=== PATIENT | female | born 1940 | race Caucasian/White ===

== ENCOUNTER 2019-10-29 07:16 | Day surgery (SDC) | payer MEDICARE, OTHER ==
[2019-10-29] MEDS ORDERED: Lidocaine 2% 5 ML SDV INJECT ONE (07:17)
[2019-10-29] MEDS ORDERED: Propofol 200 MG/20 ML SDV IV ONE (07:17)
[2019-10-29] MEDS ORDERED: Lactated Ringers 1,000 ML IV SCH (07:45)
[2019-10-29] MEDS ORDERED: Sodium Chloride 0.9% 10 ML Syringe FLUSH PRN (07:45)
--- NOTE | 2019-10-29 09:24 | PCM.OPNOTE ---
- General Post-Op/Procedure Note Date of Surgery/Procedure: 10/29/19 Operative Procedure(s): egd with biopsy Findings: gastritis Pre Op Diagnosis: hx of epigastric pain Post-Op Diagnosis: gastritis Anesthesia Technique: MAC Primary Surgeon: Micah Hicks Anesthesia Provider: Nichol Ly Pathology: stomach biopsies Complications: None Condition: Good Free Text/Narrative:: see dictation
[2019-10-29 11:52] VITALS: BP 134/68; PULSE 66
--- NOTE | 2019-10-29 15:09 | OR ---
DATE OF OPERATION: 10/29/2019 SURGEON: Micah Hicks MD PROCEDURE PERFORMED: Esophagogastroduodenoscopy with cold forceps biopsy. PREOPERATIVE DIAGNOSIS: Epigastric abdominal pain. POSTOPERATIVE DIAGNOSIS: Gastritis. INDICATIONS FOR PROCEDURE: This is a 79-year-old white female referred with the above-mentioned complaints of some epigastric abdominal discomfort. She is on a proton pump inhibitor. She was offered and accepted an EGD as part of workup. DESCRIPTION OF OPERATION: After an excellent IV sedation was administered, the bite block was inserted. The flexible endoscope was passed without difficulty down the patient's esophagus into the stomach. The stomach was insufflated. Scope passed through the pylorus to the second portion of duodenum and slowly withdrawn. The following findings were noted: Duodenum was unremarkable. Stomach demonstrated diffuse gastritis. Random biopsies and photos were taken. GE junction measured at approximately 40 cm. The Z-line was noted to be unremarkable. The esophagus itself was unremarkable. The stomach was deflated. Scope was removed. The patient tolerated the procedure well, was taken to Recovery in good condition. Results will be sent to the patient via letter. /[id number] /MODL
== END 2019-10-29 10:05 | disposition home or self-care (01) ==
LOC: FB.SDS 07:16
PROVIDERS: ATTEND Surgery
DX: K29.30 Chronic superficial gastritis without bleeding (principal); B96.81 Helicobacter pylori [H. pylori] as the cause of diseases classified elsewhere; E11.9 Type 2 diabetes mellitus without complications; I10 Essential (primary) hypertension; Z79.899 Other long term (current) drug therapy; Z79.84 Long term (current) use of oral hypoglycemic drugs; Z88.0 Allergy status to penicillin; Z88.8 Allergy status to other drugs, medicaments and biological substances; Z90.49 Acquired absence of other specified parts of digestive tract
CPT/HCPCS: 00731; 43239; 82962; J2001; J2704; J7120; 88305; 88342

== ENCOUNTER 2020-12-08 16:45 | Observation (INO) | payer MEDICARE, OTHER ==
[2020-12-08] MEDS ORDERED: Sodium Chloride 0.9% 10 ML Syringe FLUSH PRN (17:40)
[2020-12-08] MEDS ORDERED: Ondansetron 4 MG/2 ML SDV IV PRN (17:40)
--- NOTE | 2020-12-08 17:55 | PCM.HP.2 ---
H&P History of Present Illness - General Date of Service: 12/08/20 Admit Problem/Dx: Admission Diagnosis/Problem Admission Diagnosis/Problem Dehydration Source of Information: Patient, Family History Limitations: Reports: No Limitations - History of Present Illness Initial Comments - Free Text/Narative: This is a 80-year-old female patient that had nausea, vomiting, not eating, abdominal pain ongoing for at least a month. He keeps getting worse. She was seen in the ER and Nirav in the evaluated her. I recently did a CT and they repeated 1 showed a cystic lesion in the pancreas and recommended MRI. She has had a scope within the last year did show gastritis. She is on a proton pump inhibitor and Carafate that has not seemed to help. She's had extensive workup for pancreatitis, liver problems and everything is negative. She also has a long psych history of depression ever since her daughter had mental issues. Her daughter is doing better but she is still have problems. She does see psychiatry and has appointment of the of the month. She denies any heartburn, hematochezia, melena, dysuria, pyuria, hematuria. Abdominal pain is cannot upper abdomen but can be diffuse at times. Her gallbladder has been surgically removed. - Related Data Allergies/Adverse Reactions: Allergies Allergy/AdvReac Type Severity Reaction Status Date / Time PHILIPPE Inhibitors Allergy Cough Verified 12/08/20 17:29 levofloxacin [From Levaquin] Allergy Edema Verified 12/08/20 17:29 meperidine HCl [From Demerol] Allergy Vomiting Verified 12/08/20 17:29 Penicillins Allergy Edema Verified 12/08/20 17:29 Home Medications: Home Meds Ascorbate Calcium [Vitamin C] 1,000 mg PO DAILY 12/09/13 [History] Aspirin [[place] Aspirin EC] 81 mg PO DAILY 12/09/13 [History] Fluticasone Propionate [Flonase] 2 spray KATHLEEN DAILY PRN 12/09/13 [History] Simvastatin [Zocor] 40 mg PO DAILY 12/09/13 [History] Sodium Chloride [Saline Nasal [place]] 1 sprays KATHLEEN QID PRN 12/09/13 [History] metFORMIN [Glucophage] 1,000 mg PO BIDM 12/09/13 [History] Calcium Carbonate/Vitamin D3 [Calcium 500 + Vit D 400] 1 each PO DAILY 06/30/20 [History] Cetirizine [ZyrTEC] 10 mg PO DAILY PRN 10/27/19 [History] Codeine/guaiFENesin [Robitussin AC] 5 ml PO Q4H PRN 10/27/19 [History] Cyanocobalamin (Vitamin B-12) [B-12] 1,000 mcg PO DAILY 10/27/19 [History] Hydrochlorothiazide/Losartan [Hyzaar 100-12.5 MG] 0.5 tab PO DAILY 10/27/19 [History] Omeprazole 20 mg PO DAILY 10/27/19 [History] Sertraline [Zoloft] 100 mg PO DAILY 10/27/19 [History] Venlafaxine [Effexor XR 24 Hr] 37.5 mg PO DAILY 12/08/20 [History] Past Medical History HEENT History: Reports: Allergic Rhinitis, Cataract Other HEENT History: ASTIGMATISM, HYPEROPIA, MUCOUS CYST OF MOUTH, PRESBYOPIA, PSEUDOPHAKIA Cardiovascular History: Reports: High Cholesterol, Hypertension Other Respiratory History: 5 YEARS AGO. HAS PROBLEM WITH SLEEP APNEA, BUT USES ONLY PILLOW FOR ELEVATION, NOT MACHINE. OCCASIONAL ALLERGIC RHINITIS Other Musculoskeletal History: ARTHROPATHY OF HAND, OSTEOPENIA OF SPINE, MEDIAL MENISCUS TEAR Psychiatric History: Reports: Anxiety, Depression Endocrine/Metabolic History: Reports: Diabetes, Type II Other Dermatologic History: EPIDERMAL CYST, SPIDER VARICOSE VEINS - Past Surgical History HEENT Surgical History: Reports: Cataract Surgery GI Surgical History: Reports: Cholecystectomy, Colonoscopy Female Surgical History: Reports: Section, Hysterectomy Other Female Surgeries/Procedures: JEFRY, RSO, D&C'S Musculoskeletal Surgical History: Reports: Arthroscopic Procedure Social & Family History - Caffeine Use Caffeine Use: Reports: Coffee H&P Review of Systems - Review of Systems: Review Of Systems: See Below General: Reports: Weakness, Decreased Appetite, Weight Loss HEENT: Reports: No Symptoms Pulmonary: Reports: No Symptoms Cardiovascular: Reports: No Symptoms Gastrointestinal: Reports: Abdominal Pain, Anorexia, Decreased Appetite, Nausea, Vomiting Genitourinary: Reports: No Symptoms Musculoskeletal: Reports: No Symptoms Skin: Reports: No Symptoms Psychiatric: Reports: Depression Neurological: Reports: No Symptoms Hematologic/Lymphatic: Reports: No Symptoms Immunologic: Reports: No Symptoms Exam - Exam Exam: See Below - Exam General: Alert, Oriented, Cooperative HEENT: PERRLA, Hearing Intact, Posterior Pharynx Clear, TMs Clear Neck: Supple, Trachea Midline Lungs: Clear to Auscultation, Normal Respiratory Effort Cardiovascular: Regular Rate, Regular Rhythm. No: Systolic Murmur GI/Abdominal Exam: Normal Bowel Sounds, Soft, No Distention, Tender (Epigastrium and right upper quadrant) Extremities: Normal Inspection, Normal Range of Motion, Non-Tender, No Pedal Edema Skin: Warm, Dry, Intact Neurological: Normal Speech, Normal Tone Neuro Extensive - Mental Status: Alert, Oriented x3, Other (Blunted mood and slow cognition) Psychiatric: Alert, Normal Affect, Normal Mood - Problem List (1) Dehydration SNOMED Code(s): 76793296 ICD Code: E86.0 - DEHYDRATION Status: Acute Current Visit: Yes (2) Abdominal pain SNOMED Code(s): 39262103 ICD Code: R10.9 - UNSPECIFIED ABDOMINAL PAIN Status: Acute Current Visit: Yes (3) Nausea & vomiting SNOMED Code(s): 01305323 ICD Code: R11.2 - NAUSEA WITH VOMITING, UNSPECIFIED Status: Acute Current Visit: Yes (4) Weight loss SNOMED Code(s): 99086991, 015692337 ICD Code: R63.4 - ABNORMAL WEIGHT LOSS Status: Acute Current Visit: Yes (5) Depression SNOMED Code(s): 75317501 ICD Code: F32.9 - MAJOR DEPRESSIVE DISORDER, SINGLE EPISODE, UNSPECIFIED Status: Acute Current Visit: Yes (6) Palliative care status SNOMED Code(s): 131617897 ICD Code: Z51.5 - ENCOUNTER FOR PALLIATIVE CARE Status: Acute Current Visit: Yes Problem List Initiated/Reviewed/Updated: Yes Orders Last 24hrs: Active Orders 24 hr Category Date Time Status Patient Status [ADT] Routine ADT 12/08/20 17:40 Ordered Blood Glucose Check, Bedside [] BIDMEALS Care 12/08/20 17:40 Ordered Height and Weight [] DAILY Care 12/08/20 17:40 Ordered Intake and Output [RC] QSHIFT Care 12/08/20 17:42 Ordered Notify Provider Consults [] ASDIRECTED Care 12/08/20 17:44 Ordered Oxygen Therapy [RC] PRN Care 12/08/20 17:40 Ordered Up With Assistance [] ASDIRECTED Care 12/08/20 17:40 Ordered VTE/DVT Education [RC] Per Unit Routine Care 12/08/20 17:40 Ordered Vital Signs [RC] Q4H Care 12/08/20 17:40 Ordered Consult to Physician [CONS] Routine Cons 12/08/20 17:40 Ordered OT Evaluation and Treatment [CONS] Routine Cons 12/08/20 17:40 Ordered PT Evaluation and Treatment [CONS] Routine Cons 12/08/20 17:40 Ordered Consistent Carbohydrate Diet [DIET] Diet 12/08/20 Dinner Ordered Abdomen w Cont [MR] Routine Exams 12/09/20 06:00 Ordered AMYLASE [CHEM] Routine Lab 12/08/20 17:40 Ordered CBC WITH AUTO DIFF [HEME] Routine Lab 12/08/20 17:40 Ordered COMPREHENSIVE METABOLIC PN,CMP [CHEM] Routine Lab 12/08/20 17:40 Ordered LIPASE [CHEM] Routine Lab 12/08/20 17:40 Ordered UA W/MICROSCOPIC [URIN] Routine Lab 12/08/20 17:40 Ordered Enoxaparin [Lovenox] Med 12/08/20 17:45 Ordered 40 mg SUBCUT Q24H Ondansetron [Zofran] Med 12/08/20 17:40 Ordered 4 mg IV Q4H PRN Sodium Chloride 0.9% @ 125 MLS/HR (1000ml) Med 12/08/20 17:45 Ordered Sodium Chloride 0.9% [Normal Saline] 1,000 ml IV ASDIRECTED Sodium Chloride 0.9% [Saline Flush] Med 12/08/20 17:40 Ordered 10 ml FLUSH ASDIRECTED PRN Peripheral IV Insertion Adult [OM.PC] Routine Oth 12/08/20 17:40 Ordered Resuscitation Status Routine Resus Stat 12/08/20 17:40 Ordered Medication Orders Enoxaparin Sodium (Enoxaparin 40 Mg/0.4 Ml Syringe) 40 mg SUBCUT Q24H SIVAKUMAR Sodium Chloride (Normal Saline) 1,000 mls @ 125 mls/hr IV ASDIRECTED SIVAKUMAR Ondansetron HCl (Ondansetron 4 Mg/2 Ml Sdv) 4 mg IV Q4H PRN PRN Reason: Nausea/Vomiting Sodium Chloride (Sodium Chloride 0.9% 10 Ml Syringe) 10 ml FLUSH ASDIRECTED PRN PRN Reason: Keep Vein Open Assessment/Plan Comment:: 1. Admit for observation. 2. Lovenox for clot prophylaxis 3. Up ad gloria. 4. Diabetic diet with Accu-Cheks twice a day 5. Continue home meds. 6. Consult surgery. Text has been sent and no response to Dr. Calvo 7. MRI of the abdomen per radiology recommendation for cystic lesion on the pancreas. 8. PT/OT 9. IV fluids for rehydration - Mortality Measure Prognosis:: Good
[2020-12-08] MEDS: Sodium Chloride 0.9% 1,000 ML IV SCH (18:06)
[2020-12-08] MEDS: Enoxaparin 40 MG/0.4 ML Syringe SUBCUT SCH (20:46)
[2020-12-08] MEDS: DONEPEZIL 5 MG PO SCH (21:09)
[2020-12-09] MEDS: Sodium Chloride 0.9% 1,000 ML IV SCH ×2 (01:40→08:59)
[2020-12-09] MEDS ORDERED: OMEPRAZOLE 20 MG PO SCH (09:00)
[2020-12-09] MEDS ORDERED: Cyanocobalamin (Vitamin B12) 1,000 MCG Tab PO SCH (09:00)
[2020-12-09] MEDS: metFORMIN 1,000 MG Tab *PTOM PO SCH ×3 (09:42→17:12)
[2020-12-09] MEDS: Simvastatin 40 MG Tab *PTOM PO SCH (09:42)
[2020-12-09] MEDS: VENLAFAXINE 37.5 MG PO SCH (09:42)
[2020-12-09] MEDS ORDERED: Losartan 50 MG Tab PO ONE (10:15)
--- NOTE | 2020-12-09 10:30 | PCM.PN ---
- General Info Date of Service: 12/09/20 Subjective Update: She has had weight loss over the past 2 years, has been progressive. States she can't eat meat, mainly vegetables/fruits but still has nausea/vomiting with this. Had CT abdomen/pelvis with contrast last week 11/30 showed cystic lesion in head of pancreas so getting MRI done this morning. Dr Walton was in to see her this morning, going to do EGD at noon today. She also has non-obstructing kidney stone on left, had hematuria in clinic so go US renal & CT renal on 12/04 and has appt with urology as outpatient. Was diagnosed by neuropsychiatry as having dementia recently. She was just switched to Nexium and had Carafate add last week. Denies any dysuria and states frequency has just been since she was started on IV fluids. She was seen in ER last week at [place], given something to drink that helped her stomach pain, she describes as constant last week and then sometimes comes and goes. Her reported that what they gave in ER helped for that day and then was vomiting again the next day. - Patient Data Vitals - Most Recent: Last Vital Signs Temp 98.1 F 12/09/20 04:35 Pulse 79 12/09/20 04:35 Resp 18 12/09/20 04:35 BP 149/104 H 12/09/20 04:35 Pulse Ox 95 12/09/20 04:35 Weight - Most Recent: 136 lb 11.2 oz I&O - Last 24 Hours: Intake & Output 12/08/20 12/09/20 12/09/20 22:59 06:59 14:59 Intake Total 1147 Output Total 300 925 300 Balance -300 222 -300 Lab Results Last 24 Hours: Laboratory Results - last 24 hr 12/08/20 12/08/20 12/08/20 Range/Units 17:55 17:55 17:55 WBC 6.6 (3.0-10.3) x10-3/uL RBC 4.73 (3.60-5.20) x10(6)uL Hgb 13.6 (11.4-15.5) g/dL Hct 40.8 (34.2-48.2) % MCV 86.1 (76.7-100.5) fL MCH 28.6 (23.9-33.9) pg MCHC 33.2 (31.9-34.8) g/dL RDW 14.4 (12.3-16.5) % Plt Count 225 (151-488) x10(3)uL MPV 8.7 (7.1-12.4) fL Neut % (Auto) 55.4 (30.8-76.2) % Lymph % (Auto) 28.7 (18.4-52.1) % [place] % (Auto) 12.2 (4.4-15.7) % Eos % (Auto) 3.0 (0.6-8.1) % Baso % (Auto) 0.7 (0.2-1.5) % Neut # (Auto) 3.6 (1.5-6.3) x10-3/uL Lymph # (Auto) 1.9 (1.0-4.4) x10-3/uL [place] # (Auto) 0.8 (0.3-1.0) x10-3/uL Eos # (Auto) 0.2 (0.0-0.8) x10-3/uL Baso # (Auto) 0.0 (0.0-0.1) x10-3/uL Sodium 142 (135-145) mmol/L Potassium 3.7 (3.5-5.3) mmol/L Chloride 104 (100-110) mmol/L Carbon Dioxide 28 (21-32) mmol/L BUN 26 H (7-18) mg/dL Creatinine 1.2 H (0.55-1.02) mg/dL Est Cr Clr Drug Dosing TNP Estimated GFR (MDRD) 43 L (>60) BUN/Creatinine Ratio 21.7 H (9-20) Glucose 95 (80-116) mg/dL POC Glucose (80-116) mg/dL Calcium 9.7 (8.6-10.2) mg/dL Total Bilirubin 0.7 (0.1-1.3) mg/dL AST 13 (5-25) IU/L ALT 19 (12-36) U/L Alkaline Phosphatase 53 L (56-112) IU/L Total Protein 6.9 (6.0-8.0) g/dL Albumin 3.6 (3.2-4.6) g/dL Globulin 3.3 g/dL Albumin/Globulin Ratio 1.1 Amylase 53 (25-115) U/L Lipase 103 (73-393) U/L Urine Color (YELLOW) Urine Appearance (CLEAR) Urine pH (5.0-6.5) Ur Specific [place] (1.010-1.025) Urine Protein (NEGATIVE) mg/dL Urine Glucose (UA) (NORMAL) mg/dL Urine Ketones (NEGATIVE) mg/dL Urine Occult Blood (NEGATIVE) Urine Nitrite (NEGATIVE) Urine Bilirubin (NEGATIVE) Urine Urobilinogen (NEGATIVE) mg/dL Ur Leukocyte Esterase (NEGATIVE) Urine RBC (0-5) Urine WBC (0-5) Ur Squamous Epith Cells (NS,R,O) Urine Bacteria (NS) 12/08/20 12/09/20 Range/Units 19:00 06:33 WBC (3.0-10.3) x10-3/uL RBC (3.60-5.20) x10(6)uL Hgb (11.4-15.5) g/dL Hct (34.2-48.2) % MCV (76.7-100.5) fL MCH (23.9-33.9) pg MCHC (31.9-34.8) g/dL RDW (12.3-16.5) % Plt Count (151-488) x10(3)uL MPV (7.1-12.4) fL Neut % (Auto) (30.8-76.2) % Lymph % (Auto) (18.4-52.1) % [place] % (Auto) (4.4-15.7) % Eos % (Auto) (0.6-8.1) % Baso % (Auto) (0.2-1.5) % Neut # (Auto) (1.5-6.3) x10-3/uL Lymph # (Auto) (1.0-4.4) x10-3/uL [place] # (Auto) (0.3-1.0) x10-3/uL Eos # (Auto) (0.0-0.8) x10-3/uL Baso # (Auto) (0.0-0.1) x10-3/uL Sodium (135-145) mmol/L Potassium (3.5-5.3) mmol/L Chloride (100-110) mmol/L Carbon Dioxide (21-32) mmol/L BUN (7-18) mg/dL Creatinine (0.55-1.02) mg/dL Est Cr Clr Drug Dosing Estimated GFR (MDRD) (>60) BUN/Creatinine Ratio (9-20) Glucose (80-116) mg/dL POC Glucose 112 (80-116) mg/dL Calcium (8.6-10.2) mg/dL Total Bilirubin (0.1-1.3) mg/dL AST (5-25) IU/L ALT (12-36) U/L Alkaline Phosphatase (56-112) IU/L Total Protein (6.0-8.0) g/dL Albumin (3.2-4.6) g/dL Globulin g/dL Albumin/Globulin Ratio Amylase (25-115) U/L Lipase (73-393) U/L Urine Color Yellow (YELLOW) Urine Appearance Clear (CLEAR) Urine pH 6.0 (5.0-6.5) Ur Specific [place] 1.015 (1.010-1.025) Urine Protein Negative (NEGATIVE) mg/dL Urine Glucose (UA) Normal (NORMAL) mg/dL Urine Ketones 15 H (NEGATIVE) mg/dL Urine Occult Blood Moderate H (NEGATIVE) Urine Nitrite Negative (NEGATIVE) Urine Bilirubin Negative (NEGATIVE) Urine Urobilinogen 1 H (NEGATIVE) mg/dL Ur Leukocyte Esterase Small H (NEGATIVE) Urine RBC 0-5 (0-5) Urine WBC 5-10 H (0-5) Ur Squamous Epith Cells Few H (NS,R,O) Urine Bacteria Moderate H (NS) Med Orders - Current: Current Medications Cyanocobalamin (Cyanocobalamin (Vitamin B12) 1,000 Mcg Tab) 1,000 mcg PO DAILY REPLACED BY [facility] Donepezil HCl (Donepezil 5 Mg Tab*Pt Own Med*) 10 mg PO BEDTIME REPLACED BY [facility] Last Admin: 12/08/20 21:09 Dose: 10 mg Documented by: Enoxaparin Sodium (Enoxaparin 40 Mg/0.4 Ml Syringe) 40 mg SUBCUT Q24H REPLACED BY [facility] Last Admin: 12/08/20 20:46 Dose: 40 mg Documented by: Sodium Chloride (Normal Saline) 1,000 mls @ 125 mls/hr IV ASDIRECTED REPLACED BY [facility] Last Admin: 12/09/20 08:59 Dose: 125 mls/hr Documented by: Metformin HCl (Metformin 1,000 Mg Tab *Ptom*) 1,000 mg PO BIDMEALS REPLACED BY [facility] Last Admin: 12/09/20 09:42 Dose: 1,000 mg Documented by: Omeprazole [ Omeprazole] 20 Mg Cap.Cr *Ptom* 20 mg PO DAILY REPLACED BY [facility] Last Admin: 12/09/20 09:42 Dose: 20 mg Documented by: Ondansetron HCl (Ondansetron 4 Mg/2 Ml Sdv) 4 mg IV Q4H PRN PRN Reason: Nausea/Vomiting Simvastatin (Simvastatin 40 Mg Tab *Ptom*) 40 mg PO DAILY REPLACED BY [facility] Last Admin: 12/09/20 09:42 Dose: 40 mg Documented by: Sodium Chloride (Sodium Chloride 0.9% 10 Ml Syringe) 10 ml FLUSH ASDIRECTED PRN PRN Reason: Keep Vein Open Venlafaxine HCl (Venlafaxine 37.5 Mg Cap.Er *Ptom*) 37.5 mg PO DAILY REPLACED BY [facility] Last Admin: 12/09/20 09:42 Dose: 37.5 mg Documented by: Discontinued Medications Losartan Potassium (Losartan 50 Mg Tab) 50 mg PO ONETIME ONE Stop: 12/09/20 10:16 - Exam General: Alert, Oriented (person, place), Cooperative, No Acute Distress Lungs: Clear to Auscultation, Normal Respiratory Effort Cardiovascular: Regular Rate, Regular Rhythm GI/Abdominal Exam: Normal Bowel Sounds, Soft, No Distention, Guarding, Tender (epigastric/RLQ). No: Rigid, Rebound Extremities: No Pedal Edema Peripheral Pulses: 2+: Radial (L), Radial (R) - Patient Data Lab Results Last 24 hrs: Laboratory Results - last 24 hr 12/08/20 12/08/20 12/08/20 Range/Units 17:55 17:55 17:55 WBC 6.6 (3.0-10.3) x10-3/uL RBC 4.73 (3.60-5.20) x10(6)uL Hgb 13.6 (11.4-15.5) g/dL Hct 40.8 (34.2-48.2) % MCV 86.1 (76.7-100.5) fL MCH 28.6 (23.9-33.9) pg MCHC 33.2 (31.9-34.8) g/dL RDW 14.4 (12.3-16.5) % Plt Count 225 (151-488) x10(3)uL MPV 8.7 (7.1-12.4) fL Neut % (Auto) 55.4 (30.8-76.2) % Lymph % (Auto) 28.7 (18.4-52.1) % [place] % (Auto) 12.2 (4.4-15.7) % Eos % (Auto) 3.0 (0.6-8.1) % Baso % (Auto) 0.7 (0.2-1.5) % Neut # (Auto) 3.6 (1.5-6.3) x10-3/uL Lymph # (Auto) 1.9 (1.0-4.4) x10-3/uL [place] # (Auto) 0.8 (0.3-1.0) x10-3/uL Eos # (Auto) 0.2 (0.0-0.8) x10-3/uL Baso # (Auto) 0.0 (0.0-0.1) x10-3/uL Sodium 142 (135-145) mmol/L Potassium 3.7 (3.5-5.3) mmol/L Chloride 104 (100-110) mmol/L Carbon Dioxide 28 (21-32) mmol/L BUN 26 H (7-18) mg/dL Creatinine 1.2 H (0.55-1.02) mg/dL Est Cr Clr Drug Dosing TNP Estimated GFR (MDRD) 43 L (>60) BUN/Creatinine Ratio 21.7 H (9-20) Glucose 95 (80-116) mg/dL POC Glucose (80-116) mg/dL Calcium 9.7 (8.6-10.2) mg/dL Total Bilirubin 0.7 (0.1-1.3) mg/dL AST 13 (5-25) IU/L ALT 19 (12-36) U/L Alkaline Phosphatase 53 L (56-112) IU/L Total Protein 6.9 (6.0-8.0) g/dL Albumin 3.6 (3.2-4.6) g/dL Globulin 3.3 g/dL Albumin/Globulin Ratio 1.1 Amylase 53 (25-115) U/L Lipase 103 (73-393) U/L Urine Color (YELLOW) Urine Appearance (CLEAR) Urine pH (5.0-6.5) Ur Specific [place] (1.010-1.025) Urine Protein (NEGATIVE) mg/dL Urine Glucose (UA) (NORMAL) mg/dL Urine Ketones (NEGATIVE) mg/dL Urine Occult Blood (NEGATIVE) Urine Nitrite (NEGATIVE) Urine Bilirubin (NEGATIVE) Urine Urobilinogen (NEGATIVE) mg/dL Ur Leukocyte Esterase (NEGATIVE) Urine RBC (0-5) Urine WBC (0-5) Ur Squamous Epith Cells (NS,R,O) Urine Bacteria (NS) 12/08/20 12/09/20 Range/Units 19:00 06:33 WBC (3.0-10.3) x10-3/uL RBC (3.60-5.20) x10(6)uL Hgb (11.4-15.5) g/dL Hct (34.2-48.2) % MCV (76.7-100.5) fL MCH (23.9-33.9) pg MCHC (31.9-34.8) g/dL RDW (12.3-16.5) % Plt Count (151-488) x10(3)uL MPV (7.1-12.4) fL Neut % (Auto) (30.8-76.2) % Lymph % (Auto) (18.4-52.1) % [place] % (Auto) (4.4-15.7) % Eos % (Auto) (0.6-8.1) % Baso % (Auto) (0.2-1.5) % Neut # (Auto) (1.5-6.3) x10-3/uL Lymph # (Auto) (1.0-4.4) x10-3/uL [place] # (Auto) (0.3-1.0) x10-3/uL Eos # (Auto) (0.0-0.8) x10-3/uL Baso # (Auto) (0.0-0.1) x10-3/uL Sodium (135-145) mmol/L Potassium (3.5-5.3) mmol/L Chloride (100-110) mmol/L Carbon Dioxide (21-32) mmol/L BUN (7-18) mg/dL Creatinine (0.55-1.02) mg/dL Est Cr Clr Drug Dosing Estimated GFR (MDRD) (>60) BUN/Creatinine Ratio (9-20) Glucose (80-116) mg/dL POC Glucose 112 (80-116) mg/dL Calcium (8.6-10.2) mg/dL Total Bilirubin (0.1-1.3) mg/dL AST (5-25) IU/L ALT (12-36) U/L Alkaline Phosphatase (56-112) IU/L Total Protein (6.0-8.0) g/dL Albumin (3.2-4.6) g/dL Globulin g/dL Albumin/Globulin Ratio Amylase (25-115) U/L Lipase (73-393) U/L Urine Color Yellow (YELLOW) Urine Appearance Clear (CLEAR) Urine pH 6.0 (5.0-6.5) Ur Specific [place] 1.015 (1.010-1.025) Urine Protein Negative (NEGATIVE) mg/dL Urine Glucose (UA) Normal (NORMAL) mg/dL Urine Ketones 15 H (NEGATIVE) mg/dL Urine Occult Blood Moderate H (NEGATIVE) Urine Nitrite Negative (NEGATIVE) Urine Bilirubin Negative (NEGATIVE) Urine Urobilinogen 1 H (NEGATIVE) mg/dL Ur Leukocyte Esterase Small H (NEGATIVE) Urine RBC 0-5 (0-5) Urine WBC 5-10 H (0-5) Ur Squamous Epith Cells Few H (NS,R,O) Urine Bacteria Moderate H (NS) Result Diagrams: 12/08/20 17:55 12/08/20 17:55 Sepsis Event Note - Evaluation Sepsis Screening Result: Possible Sepsis Risk - Focused Exam Vital Signs: Vital Signs Temp Pulse Resp BP Pulse Ox 12/09/20 04:35 98.1 F 79 18 149/104 H 95 12/08/20 23:20 98.4 F 91 18 153/100 H 97 - Problem List & Annotations (1) Abdominal pain SNOMED Code(s): 99910828 Code(s): R10.9 - UNSPECIFIED ABDOMINAL PAIN Status: Acute Current Visit: Yes (2) Dehydration SNOMED Code(s): 82606802 Code(s): E86.0 - DEHYDRATION Status: Acute Current Visit: Yes (3) Depression SNOMED Code(s): 43693612 Code(s): F32.9 - MAJOR DEPRESSIVE DISORDER, SINGLE EPISODE, UNSPECIFIED Status: Chronic Current Visit: Yes (4) Nausea & vomiting SNOMED Code(s): 50896287 Code(s): R11.2 - NAUSEA WITH VOMITING, UNSPECIFIED Status: Chronic Current Visit: Yes Annotation/Comment:: Progressively worsening over the last 2 years. (5) Weight loss SNOMED Code(s): 87561141, 323323785 Code(s): R63.4 - ABNORMAL WEIGHT LOSS Status: Acute Current Visit: Yes Annotation/Comment:: 36 pounds over past 2 years. (6) Dementia SNOMED Code(s): 81335599 Code(s): F03.90 - UNSPECIFIED DEMENTIA WITHOUT BEHAVIORAL DISTURBANCE Status: Chronic Current Visit: Yes Annotation/Comment:: per neuropsychiatry evaluation at [place] (7) Pancreatic lesion SNOMED Code(s): 0003005 Code(s): K86.9 - DISEASE OF PANCREAS, UNSPECIFIED Status: Acute Current Visit: Yes - Problem List Review Problem List Initiated/Reviewed/Updated: Yes - Plan Plan:: 1. Abdominal pain: Dr Walton consulted and seen this morning will have EGD today around noon. MRI abdomen/pelvis for this morning in regards to pancreatic lesion, has increased in size since 2018 CT but lesion was not commented on the [address] Christianson, her PCP. She was started on Nexium and Carafate last week so will continue these. She received Omeprazole this morning so will start Nexium tomorrow, adjust treatments per Dr Walton after EGD today. 2. Hematuria/abnormal UA: Large kidney stone on left. UC pending, she has been asymptomatic. 3. Diet: NPO, meds with sips of water. 4. HTN: give Losartan 50 mg x 1 this morning and restart her usual dose tomorrow at bedtime. 5. Dementia: Aricept at bedtime. 6. Discharge: anticipate 24-48 hours to rehydrate, complete studies and adjust treatments as necessary.
[2020-12-09] MEDS ORDERED: Gadoteridol 279.3 MG/ML 10 ML SDV IVPUSH ONE (10:46)
--- NOTE | 2020-12-09 12:40 | PCM.OPNOTE ---
- General Post-Op/Procedure Note Date of Surgery/Procedure: 12/09/20 Operative Procedure(s): EGD with biopsy Findings: Mild generalized inflammation and atrophy of distal gastric mucosa. No ulcers or other lesions seen. Esophagus and duodenum appeared normal Pre Op Diagnosis: Abdominal pain, nausea Post-Op Diagnosis: Gastritis Anesthesia Technique: MAC Primary Surgeon: Siddhartha Walton Pathology: Biopsies of stomach and duodenum EBL in mLs: 2 Complications: None Condition: Good Free Text/Narrative:: Intake & Output 12/08/20 12/09/20 12/09/20 22:59 06:59 14:59 Intake Total 1147 Output Total 300 925 300 Balance -300 222 -300
[2020-12-09] MEDS ORDERED: Lidocaine 2% 5 ML SDV INJECT ONE (12:59)
[2020-12-09] MEDS ORDERED: Glycopyrrolate 0.2 MG/ML 5 ML MDV IV ONE (12:59)
[2020-12-09] MEDS ORDERED: Propofol 200 MG/20 ML SDV IV ONE (12:59)
--- NOTE | 2020-12-09 13:10 | OR ---
DATE OF OPERATION: 12/09/2020 SURGEON: Siddhartha Walton MD PREOPERATIVE DIAGNOSES: Abdominal pain and nausea. POSTOPERATIVE DIAGNOSIS: Gastritis. OPERATION PERFORMED: Esophagogastroduodenoscopy with biopsy. INDICATIONS FOR SURGERY: This 80-year-old female has a longstanding history of abdominal pain and nausea which is gradually worsening. The etiology for these symptoms has not been clearly identified and diagnostic upper endoscopy is planned. FINDINGS: The mucosa of the distal stomach did appear slightly atrophic with mild generalized inflammation, but the exam otherwise appeared normal. The lining of the esophagus and duodenum appeared normal without visible signs of inflammation. There were no ulcers or other lesions seen. PROCEDURE IN DETAIL: The patient was taken to the procedure room. She was given intravenous sedation and with her in the left lateral decubitus position, the Olympus gastroscope was advanced through a mouth guard into the oral cavity. Under direct visualization, the scope was advanced through the oropharynx and then down through the esophagus, stomach, and into the duodenum where examination to the third portion was performed. The duodenum was carefully examined and because of her symptoms of pain, random biopsies of the duodenal mucosa are taken. The scope was withdrawn back into the stomach where full examination including retroflexed examination of the fundus was performed. Random biopsies of the lower and upper stomach are taken to rule out H pylori or other pathology. The GE junction and esophagus were then carefully re-examined as the scope was removed. After the exam had been completed and with no sign of complication, the scope was removed and the patient was taken from the procedure room in satisfactory condition. ESTIMATED BLOOD LOSS: 2 mL. COMPLICATIONS: None. PROGNOSIS: Good. /[id number] MIREYA/EDWIN
--- NOTE | 2020-12-09 13:31 | CONS ---
DATE OF CONSULTATION: 12/09/2020 REASON FOR CONSULTATION: A 80-year-old female seen today in consultation at the request of Dr. Christianson. HISTORY OF PRESENT ILLNESS: This patient was hospitalized with symptoms of abdominal pain. In discussion with her and her , it seems that this pain has been going on for more than 2 years, but has gradually been worsening. She describes the pain as intermittent, sometimes crampy in nature, and currently on the right side, but sometimes also on the left side of her abdomen. Associated with this is nausea and occasional vomiting. Bowel movements have been satisfactory but small amounts because she does not eat much, and as a result of this, she has had significant weight loss in the recent past. She has not had any previous abdominal surgery. She has had evaluation with recent CT scans, which have documented renal stones, although not causing any ureteral obstruction and also identified recently was a lesion in the head of her pancreas. Workup for this is in process. The patient does have a history of an EGD approximately a year ago, at which time, gastritis was noted. PAST SURGICAL HISTORY: The patient has had previous cholecystectomy. HOME MEDICATIONS: 1. Nexium. 2. Hyzaar. 3. Effexor. 4. Zocor. 5. Glucophage. ALLERGIES: She is allergic to PHILIPPE inhibitors, Levaquin, Demerol, and penicillin. SYSTEM REVIEW: She has not been experiencing any shortness of breath, cough, or change in taste or smell. LABORATORY DATA: Laboratory studies are reviewed. No significant abnormalities are noted on those reviewed today. PHYSICAL EXAMINATION: VITAL SIGNS: The patient is afebrile. Pulse is 85, blood pressure is 155/89, and O2 saturation is 93%. GENERAL: The patient is alert, adult female, somewhat lethargic but in no acute distress. HEENT: Head is normocephalic. No scleral icterus. ABDOMEN: Currently soft. There is tenderness to direct palpation to a mild degree in the right upper quadrant. I do not feel any distention or mass, and there is no guarding. IMPRESSION: Abdominal pain, nausea, etiology unclear. RECOMMENDATIONS: Advised EGD. Discussed the proposed upper endoscopy with the patient. Reviewed with her indications, options, and risks, and she agrees to proceed. This will be scheduled for later today. /[id number] MIREYA/EDWIN
[2020-12-09] MEDS: Sucralfate 1 GM Tab *PTOM PO SCH ×2 (17:08→20:10)
[2020-12-09] MEDS: DONEPEZIL 5 MG PO SCH (20:08)
[2020-12-09] MEDS: LORazepam 0.5 MG Tab PO PRN ×2 (20:11→23:59)
[2020-12-09] MEDS: Enoxaparin 40 MG/0.4 ML Syringe SUBCUT SCH (20:12)
[2020-12-09] MEDS ORDERED: LOSARTAN PO SCH (21:00)
[2020-12-09] MEDS ORDERED: HYDROCHLOROTHIAZIDE PO SCH (21:00)
[2020-12-10] MEDS: Sodium Chloride 0.9% 1,000 ML IV SCH (03:10)
[2020-12-10] MEDS: Sucralfate 1 GM Tab *PTOM PO SCH ×2 (06:46→13:09)
[2020-12-10] MEDS: VENLAFAXINE 37.5 MG PO SCH (08:56)
[2020-12-10] MEDS: metFORMIN 1,000 MG Tab *PTOM PO SCH (08:56)
[2020-12-10] MEDS: Simvastatin 40 MG Tab *PTOM PO SCH (08:58)
[2020-12-10] MEDS ORDERED: ESOMEPRAZOLE 40 MG PO SCH (09:00)
[2020-12-10] MEDS ORDERED: Hydrochlorothiazide/Losartan 12.5-100 mg Tab PO ONE (09:00)
[2020-12-10] MEDS ORDERED: Non-Formulary Medication 1 Each (Esomeprazole [Nexium] 40 MG Cap) PO SCH (09:00)
[2020-12-10 12:29] VITALS: BP 137/81; PULSE 92
--- NOTE | 2020-12-10 15:26 | PCM.DCSUM1 ---
Discharge Summary - Hospital Course HPI Initial Comments: This is a 80-year-old female patient that had nausea, vomiting, not eating, abdominal pain ongoing for at least a month. He keeps getting worse. She was seen in the ER and [facility] in the evaluated her. I recently did a CT and they repeated 1 showed a cystic lesion in the pancreas and recommended MRI. She has had a scope within the last year did show gastritis. She is on a proton pump inhibitor and Carafate that has not seemed to help. She's had extensive workup for pancreatitis, liver problems and everything is negative. She also has a long psych history of depression ever since her daughter had mental issues. Her daughter is doing better but she is still have problems. She does see psychiatry and has appointment of the of the month. She denies any heartburn, hematochezia, melena, dysuria, pyuria, hematuria. Abdominal pain is cannot upper abdomen but can be diffuse at times. Her gallbladder has been surgically removed. Diagnosis: Stroke: No - Discharge Data Discharge Date: 12/10/20 Discharge Disposition: Home, Self-Care 01 Condition: Good - Referral to Home Health Primary Care Physician: Ezekiel Christianson MD - Discharge Diagnosis/Problem(s) (1) Acute gastritis without bleeding SNOMED Code(s): 91180623, 99460878 ICD Code: K29.00 - ACUTE GASTRITIS WITHOUT BLEEDING Status: Acute Problem Details: EGD yesterday, biopsies pending. Nexium 40 mg daily and Carafate 1 g qidac&hs (2) Pancreatic lesion SNOMED Code(s): 4836478 ICD Code: K86.9 - DISEASE OF PANCREAS, UNSPECIFIED Status: Acute Problem Details: MRI abdomen/pelvis done 12/09, report still pending. (3) Abdominal pain SNOMED Code(s): 09180588 ICD Code: R10.9 - UNSPECIFIED ABDOMINAL PAIN Status: Chronic Qualifiers: Abdominal location: epigastric Qualified Code(s): R10.13 - Epigastric pain (4) Dehydration SNOMED Code(s): 59790126 ICD Code: E86.0 - DEHYDRATION Status: Resolved (5) Depression SNOMED Code(s): 07993105 ICD Code: F32.9 - MAJOR DEPRESSIVE DISORDER, SINGLE EPISODE, UNSPECIFIED Status: Chronic (6) Nausea & vomiting SNOMED Code(s): 74993757 ICD Code: R11.2 - NAUSEA WITH VOMITING, UNSPECIFIED Status: Chronic Problem Details: Progressively worsening over the last 2 years. Currently controlled (7) Weight loss SNOMED Code(s): 02425999, 774509961 ICD Code: R63.4 - ABNORMAL WEIGHT LOSS Status: Chronic Problem Details: 36 pounds over past 2 years. (8) Dementia SNOMED Code(s): 39665632 ICD Code: F03.90 - UNSPECIFIED DEMENTIA WITHOUT BEHAVIORAL DISTURBANCE Status: Chronic Problem Details: per neuropsychiatry evaluation at [facility] - Patient Summary/Data Operative Procedure(s) Performed: EGD with biopsy Consults: Consultations 12/08/20 17:40 Consult to Physician [CONS] Routine Consulting Provider: Siddhartha Walton Call Completed to Consulting Physician: Yes: Sent text. No response yet OT Evaluation and Treatment [CONS] Routine Please Evaluate and Treat. OT Reason for Consult: ADL's This query below is only for informational purposes and is not editable. PT Evaluation and Treatment [CONS] Routine Please Evaluate and Treat. PT Reason for Consult: Ambulation This query below is only for informational purposes and is not editable. Hospital Course: Debbie was direct admission from clinic, had CT abdomen/pelvis with contrast 11/30 and then Renal U/S with CT renal protocol on 12/04(see scanned reports). She has a nonobstructing kidney stone on left and also pancreatic lesion on CT from 11/30, she had MRI abdomen/pelvis done yesterday, report still pending at time of this writing. She received IV fluids at rate of 150 ml/hr, this was slowed to 125 ml/hr yesterday prior to procedure, slowed to 75 ml/hr after procedure with advancement of her diet then 50 ml/hr as her blood pressure remained elevated after procedure. She was saline locked morning of discharge. Her Cr on admission was 1.2, resolved to normal 1.0 today. She had abnormal urine on admission but was asymptomatic so no antibiotics were started while awaiting culture results. Urine culture came back today with mixed normal eliana, so contaminated sample. Dr Walton was consulted morning after admission, see his consultation note. He performed EGD 12/09 and found gastritis, biopsies were taken and pending. She had Omeprazole discontinued and Nexium and Carafate resumed which controlled her symptoms. She had no vomiting episode during her hospitalization, no Zofran was given. Her blood pressure medication was held due to NPO night of admission, her blood pressure was elevated next morning so Losartan 50 mg given prior to MRI & EGD. Her pressures still remained elevated 184/119 so resumed her home medication Losartan/HCTZ 50 mg/12.5 mg that evening and repeated dose again this morning, prior to discharge her blood pressure was 137/81. She was very anxious about being in the hospital and her not staying the night last night. She had Ativan 0.25 mg ordered as needed, she received a dose at 23:59 and slept for few hours. She was more relaxed this morning and was anxious to go home today. - Patient Instructions Diet: Usual Diet as Tolerated Activity: As Tolerated Driving: Do Not Drive Showering/Bathing: May Shower Notify Provider of: Fever, Increased Pain, Nausea and/or Vomiting Other/Special Instructions: Follow up with Dr Christianson on Sat or to go over MRI results and recheck your blood pressure. Follow up with Dr Walton in 1 week to review biopsy results. - Discharge Plan *PRESCRIPTION DRUG MONITORING PROGRAM REVIEWED*: Not Applicable *COPY OF PRESCRIPTION DRUG MONITORING REPORT IN PATIENT SHRUTHI: Not Applicable Home Medications: Home Meds Ascorbate Calcium [Vitamin C] 1,000 mg PO DAILY 12/09/13 [History] Fluticasone Propionate [Flonase] 2 spray KATHLEEN DAILY PRN 12/09/13 [History] Simvastatin [Zocor] 40 mg PO DAILY 12/09/13 [History] metFORMIN [Glucophage] 1,000 mg PO BIDM 12/09/13 [History] Cyanocobalamin (Vitamin B-12) [B-12] 1,000 mcg PO DAILY 10/27/19 [History] Hydrochlorothiazide/Losartan [Hyzaar 100-12.5 MG] 0.5 tab PO BEDTIME 10/27/19 [History] Donepezil HCl 10 mg PO BEDTIME 12/08/20 [History] Venlafaxine [Effexor XR] 37.5 mg PO DAILY 12/08/20 [History] Esomeprazole [NexIUM] 40 mg PO DAILY 12/09/20 [History] Sucralfate 1 gm PO QIDACANDBED 12/09/20 [History] Oxygen Therapy Mode: Room Air Patient Handouts: Gastritis, Adult, [id number], Nausea and Vomiting, Adult, [id number]-mg-Cnnw, Venous Thromboembolism Prevention Referrals: Ezekiel Christianson MD [Primary Care Provider] - - Discharge Summary/Plan Comment DC Time >30 min.: Yes Total # of Minutes for Discharge Time: 30 min - General Info Date of Service: 12/10/20 Subjective Update: Debbie ate after her procedure yesterday, ordered a different breakfast this morning as she did not like the first one she received. She denies any vomiting yesterday or this morning. Abdominal pain has improved. She has been very anxious being in the hospital and concerned bout her leaving her last night, she did get 1 dose of Ativan prior to his leaving, she slept a little bit but then was up in a few hours. Her blood pressures have been up since prior to the EGD yesterday. EGD showed gastritis, biopsies were taken and pending. MRI done yesterday, report still pending at time of this writing. Functional Status: Reports: Pain Controlled, Tolerating Diet, Ambulating, Urinating. Denies: New Symptoms - Patient Data Vitals - Most Recent: Last Vital Signs Temp 98.8 F 12/10/20 12:27 Pulse 92 12/10/20 12:27 Resp 18 12/10/20 12:27 BP 137/81 12/10/20 12:27 Pulse Ox 93 L 12/10/20 12:27 Weight - Most Recent: 136 lb 11.2 oz I&O - Last 24 hours: Intake & Output 12/10/20 12/10/20 12/10/20 06:59 14:59 22:59 Intake Total 654 236 Output Total 1000 Balance -346 236 Lab Results - Last 24 hrs: Laboratory Results - last 24 hr 12/09/20 12/10/20 12/10/20 Range/Units 17:03 05:39 09:08 Sodium 141 (135-145) mmol/L Potassium 3.5 (3.5-5.3) mmol/L Chloride 105 (100-110) mmol/L Carbon Dioxide 28 (21-32) mmol/L BUN 13 D (7-18) mg/dL Creatinine 1.0 (0.55-1.02) mg/dL Est Cr Clr Drug Dosing 41.72 mL/min Estimated GFR (MDRD) 54 L (>60) BUN/Creatinine Ratio 13.0 (9-20) Glucose 106 (80-116) mg/dL POC Glucose 126 H 95 (80-116) mg/dL Calcium 8.9 (8.6-10.2) mg/dL BEVERLY Results - Last 24 hrs: Microbiology 12/08/20 19:00 Urine Culture - Preliminary Urine, Voided MIXED POSITIVE ELIANA DAY 1 Med Orders - Current: Current Medications Discontinued Medications Cyanocobalamin (Cyanocobalamin (Vitamin B12) 1,000 Mcg Tab) 1,000 mcg PO DAILY [facility] Last Admin: 12/09/20 11:40 Dose: Not Given Documented by: Donepezil HCl (Donepezil 5 Mg Tab*Pt Own Med*) 10 mg PO BEDTIME [facility] Last Admin: 12/09/20 20:08 Dose: 10 mg Documented by: Enoxaparin Sodium (Enoxaparin 40 Mg/0.4 Ml Syringe) 40 mg SUBCUT Q24H [facility] Last Admin: 12/09/20 20:12 Dose: 40 mg Documented by: Gadoteridol (Gadoteridol 279.3 Mg/Ml 10 Ml Sdv) 10 ml IVPUSH ONETIME ONE Stop: 12/09/20 10:47 Last Admin: 12/09/20 11:04 Dose: 10 ml Documented by: HCTZ/Losartan Potassium (Hydrochlorothiazide/Losartan 12.5-100 Mg Tab *Ptom*) 0.5 tab PO BEDTIME [facility] Last Admin: 12/09/20 20:09 Dose: 0.5 tab Documented by: HCTZ/Losartan Potassium (Hydrochlorothiazide/Losartan 12.5-100 Mg Tab) 0.5 tab PO ONETIME ONE Stop: 12/10/20 09:01 Last Admin: 12/10/20 09:55 Dose: 0.5 tab Documented by: Sodium Chloride (Normal Saline) 1,000 mls @ 50 mls/hr IV ASDIRECTED [facility] Last Admin: 12/10/20 03:10 Dose: 125 mls/hr Documented by: Lorazepam (Lorazepam 0.5 Mg Tab) 0.25 mg PO Q4H PRN PRN Reason: Anxiety Last Admin: 12/09/20 23:59 Dose: 0.25 mg Documented by: Losartan Potassium (Losartan 50 Mg Tab) 50 mg PO ONETIME ONE Stop: 12/09/20 10:16 Last Admin: 12/09/20 11:15 Dose: 50 mg Documented by: Metformin HCl (Metformin 1,000 Mg Tab *Ptom*) 1,000 mg PO BIDMEALS [facility] Last Admin: 12/10/20 08:56 Dose: 1,000 mg Documented by: Omeprazole [ Omeprazole] 20 Mg Cap.Cr *Ptom* 20 mg PO DAILY [facility] Last Admin: 12/09/20 09:42 Dose: 20 mg Documented by: Esomeprazole 40mg * (Ptom) 0 each PO DAILY [facility] Last Admin: 12/10/20 08:57 Dose: 1 each Documented by: Ondansetron HCl (Ondansetron 4 Mg/2 Ml Sdv) 4 mg IV Q4H PRN PRN Reason: Nausea/Vomiting Simvastatin (Simvastatin 40 Mg Tab *Ptom*) 40 mg PO DAILY [facility] Last Admin: 12/10/20 08:58 Dose: 40 mg Documented by: Sodium Chloride (Sodium Chloride 0.9% 10 Ml Syringe) 10 ml FLUSH ASDIRECTED PRN PRN Reason: Keep Vein Open Sucralfate (Sucralfate 1 Gm Tab *Ptom) 1 gm PO QIDACANDBED [facility] Last Admin: 12/10/20 13:09 Dose: Not Given Documented by: Venlafaxine HCl (Venlafaxine 37.5 Mg Cap.Er *Ptom*) 37.5 mg PO DAILY [facility] Last Admin: 12/10/20 08:56 Dose: 37.5 mg Documented by: - Exam General: Reports: Alert, Oriented (person), Cooperative, No Acute Distress Lungs: Reports: Clear to Auscultation, Normal Respiratory Effort Cardiovascular: Reports: Regular Rate, Regular Rhythm GI/Abdominal Exam: Normal Bowel Sounds, Soft, No Distention, Tender (mild epigastric, improved from yesterday). No: Guarding (Female) Exam: Deferred Rectal (Female) Exam: Deferred Extremities: No Pedal Edema, Normal Capillary Refill Skin: Reports: Warm, Dry, Intact Psy/Mental Status: Denies: Normal Affect (flat, slow speech) Discharge Operative/Procedures - Procedures Performed Operations: EGD
== END 2020-12-10 13:00 | disposition home or self-care (01) ==
LOC: FB.MS 17:14
PROVIDERS: ADMIT Family Medicine; ATTEND Family Medicine
DX: K29.50 Unspecified chronic gastritis without bleeding (principal); K86.9 Disease of pancreas, unspecified; E86.0 Dehydration; F32.9 Major depressive disorder, single episode, unspecified; R63.4 Abnormal weight loss; F03.90 Unspecified dementia, unspecified severity, without behavioral disturbance, psychotic disturbance, mood disturbance, and anxiety; I10 Essential (primary) hypertension; E78.00 Pure hypercholesterolemia, unspecified; Z79.82 Long term (current) use of aspirin; Z79.84 Long term (current) use of oral hypoglycemic drugs; Z79.899 Other long term (current) drug therapy; Z88.8 Allergy status to other drugs, medicaments and biological substances
CPT/HCPCS: 00731-QZ; 36415; 74183; 80048; 80053; 81001; 82150; 82947; 83690; 85025; 87086; 88305; 88342; 96372; A9270-GY; A9579; G0378; J1650; J2704; J3490; J7030

== ENCOUNTER 2021-11-02 10:39 | Inpatient (IN) | payer MEDICARE, OTHER ==
[2021-11-02] MEDS ORDERED: Sodium Chloride 0.9% 10 ML Syringe FLUSH PRN (11:41)
[2021-11-02] MEDS ORDERED: Fluticasone NASAL Spray 16 GM Bottle NAS PRN (11:47)
[2021-11-02 12:26] LABS: ESTIMATED GFR 38 mL/min (>60)
[2021-11-02] MEDS: Enoxaparin 30 MG/0.3 ML Syringe SUBCUT SCH (13:30)
[2021-11-02] MEDS: Sodium Chloride 0.9% 1,000 ML IV SCH (17:15)
[2021-11-02] MEDS: Aspirin 81 MG Tab.EC PO SCH (17:15)
[2021-11-02] MEDS: Rivastigmine 9.5 MG/24 HR Transdermal Patch TRDERM SCH (21:38)
[2021-11-02] MEDS: Mirtazapine 30 MG Tab PO SCH (21:39)
[2021-11-02] MEDS: QUEtiapine 25 MG Tab PO SCH (21:39)
[2021-11-02] MEDS: Melatonin 3 MG Tab PO SCH (21:39)
[2021-11-03] MEDS: Sodium Chloride 0.9% 1,000 ML IV SCH (01:43)
[2021-11-03] MEDS: Pantoprazole 40 MG Tab.CR PO SCH (05:25)
[2021-11-03 06:55] LABS: ESTIMATED GFR 35 mL/min (>60)
[2021-11-03] MEDS: Sodium Chloride 0.45% with KCl 1,000 ML IV SCH ×2 (09:19→19:38)
[2021-11-03] MEDS: Simvastatin 40 MG Tab PO SCH (09:54)
[2021-11-03] MEDS: Enoxaparin 30 MG/0.3 ML Syringe SUBCUT SCH (13:00)
[2021-11-03] MEDS: Aspirin 81 MG Tab.EC PO SCH (17:30)
[2021-11-03] MEDS: Melatonin 3 MG Tab PO SCH (19:59)
[2021-11-03] MEDS: Mirtazapine 30 MG Tab PO SCH (19:59)
[2021-11-03] MEDS: Rivastigmine 9.5 MG/24 HR Transdermal Patch TRDERM SCH (19:59)
[2021-11-03] MEDS: QUEtiapine 25 MG Tab PO SCH (19:59)
[2021-11-04] MEDS: Pantoprazole 40 MG Tab.CR PO SCH (05:00)
[2021-11-04] MEDS: Sodium Chloride 0.45% with KCl 1,000 ML IV SCH (05:02)
[2021-11-04 06:42] LABS: ESTIMATED GFR 46 mL/min (>60)
[2021-11-04] MEDS: Simvastatin 40 MG Tab PO SCH (07:59)
[2021-11-04] MEDS: Enoxaparin 30 MG/0.3 ML Syringe SUBCUT SCH (12:59)
[2021-11-04] MEDS: Lactated Ringers 1,000 ML IV SCH (13:18)
[2021-11-04] MEDS: Aspirin 81 MG Tab.EC PO SCH (17:59)
[2021-11-04] MEDS: Rivastigmine 9.5 MG/24 HR Transdermal Patch TRDERM SCH (20:11)
[2021-11-04] MEDS: Melatonin 3 MG Tab PO SCH (20:11)
[2021-11-04] MEDS: Mirtazapine 30 MG Tab PO SCH (20:12)
[2021-11-04] MEDS: QUEtiapine 25 MG Tab PO SCH (20:12)
[2021-11-05] MEDS: Pantoprazole 40 MG Tab.CR PO SCH (05:05)
[2021-11-05] MEDS: Lactated Ringers 1,000 ML IV SCH ×2 (06:33→21:33)
[2021-11-05 06:39] LABS: ESTIMATED GFR 42 mL/min (>60)
[2021-11-05] MEDS: Simvastatin 40 MG Tab PO SCH (09:00)
[2021-11-05] MEDS: guaiFENesin 600 MG Tab.ER PO SCH ×2 (12:04→20:46)
[2021-11-05] MEDS: Enoxaparin 30 MG/0.3 ML Syringe SUBCUT SCH (12:05)
[2021-11-05] MEDS: Aspirin 81 MG Tab.EC PO SCH (18:01)
[2021-11-05] MEDS: Rivastigmine 9.5 MG/24 HR Transdermal Patch TRDERM SCH (20:44)
[2021-11-05] MEDS: QUEtiapine 25 MG Tab PO SCH (20:45)
[2021-11-05] MEDS: Mirtazapine 30 MG Tab PO SCH (20:45)
[2021-11-05] MEDS: Melatonin 3 MG Tab PO SCH (20:45)
[2021-11-06] MEDS ORDERED: Acetaminophen 325 MG Tab PO PRN (03:39)
[2021-11-06] MEDS ORDERED: Acetaminophen 650 MG Supp RECTAL PRN (03:50)
[2021-11-06] MEDS ORDERED: Glucagon,Human Recombinant 1 MG Vial IVPUSH ONE (04:54)
[2021-11-06] MEDS ORDERED: 50% Dextrose in Water 50 ML Syringe IVPUSH ONE (04:55)
[2021-11-06] MEDS ORDERED: 50% Dextrose in Water 50 ML Syringe ONE (04:56)
[2021-11-06] MEDS ORDERED: Glucagon,Human Recombinant 1 MG Vial ONE (04:56)
[2021-11-06 05:26] LABS: ESTIMATED GFR 42 mL/min (>60)
[2021-11-06] MEDS ORDERED: Furosemide 20 MG/2 ML VIAL IVPUSH ONE (06:48)
[2021-11-06] MEDS ORDERED: Iopamidol 755 Mg/ML 75 ML Bottle IV ONE (07:13)
[2021-11-06] MEDS: Pantoprazole 40 MG Tab.CR PO SCH (08:06)
[2021-11-06] MEDS ORDERED: cefTRIAXone 1 GM in Sodium Chloride 0.9% 50 ML IV SCH (09:00)
[2021-11-06] MEDS ORDERED: cefTRIAXone 1 GM Vial IVPUSH SCH (09:00)
[2021-11-06] MEDS ORDERED: Labetalol 20 MG/4 ML Syringe IVPUSH ONE (09:09)
[2021-11-06 09:42] VITALS: BP 129/72; PULSE 109
[2021-11-06] MEDS: Acetaminophen 650 MG Supp RECTAL PRN (09:56)
[2021-11-06] MEDS: Simvastatin 40 MG Tab PO SCH (09:57)
[2021-11-06] MEDS: guaiFENesin 600 MG Tab.ER PO SCH (09:57)
[2021-11-06] MEDS ORDERED: Enoxaparin 60 MG/0.6 ML Syringe SUBCUT SCH (10:00)
[2021-11-06 10:11] LABS: ESTIMATED GFR 38 mL/min (>60)
[2021-11-06] MEDS ORDERED: Sodium Chloride 0.9% 1,000 ML IV SCH (11:00)
[2021-11-06] MEDS ORDERED: Ibuprofen 400 MG Tab ONE (13:04)
[2021-11-06] MEDS ORDERED: Hyoscyamine 0.125 MG Tab.SL PO PRN (13:21)
[2021-11-06] MEDS ORDERED: LORazepam 1 MG Tab PO PRN (13:24)
[2021-11-06] MEDS ORDERED: Scopolamine 1.5 MG Transdermal Patch TOP SCH (13:30)
[2021-11-07] MEDS: Morphine 10 MG/0.5 ML Oral Syringe SL PRN ×7 (01:15→11:25)
[2021-11-07] MEDS: Acetaminophen 650 MG Supp RECTAL PRN (04:16)
[2021-11-07] MEDS: LORazepam 1 MG Tab PO PRN ×3 (09:15→11:25)
== END 2021-11-07 20:26 | disposition expired | DRG 177 ==
LOC: FB.MS 10:39
PROVIDERS: ADMIT Family Medicine; ATTEND Family Medicine
DX: U07.1 COVID-19 (principal); A41.9 Sepsis, unspecified organism; I26.99 Other pulmonary embolism without acute cor pulmonale; F02.81 Dementia in other diseases classified elsewhere, unspecified severity, with behavioral disturbance; E87.0 Hyperosmolality and hypernatremia; N17.9 Acute kidney failure, unspecified; N39.0 Urinary tract infection, site not specified; I16.1 Hypertensive emergency; E86.0 Dehydration; R53.1 Weakness; Z51.5 Encounter for palliative care; G31.83 Neurocognitive disorder with Lewy bodies; R41.82 Altered mental status, unspecified; R31.9 Hematuria, unspecified; E78.00 Pure hypercholesterolemia, unspecified; J30.9 Allergic rhinitis, unspecified; H52.209 Unspecified astigmatism, unspecified eye; H52.00 Hypermetropia, unspecified eye; H52.4 Presbyopia; Z96.1 Presence of intraocular lens; I10 Essential (primary) hypertension; M85.88 Other specified disorders of bone density and structure, other site; M19.049 Primary osteoarthritis, unspecified hand; F41.9 Anxiety disorder, unspecified; F32.A Depression, unspecified; E11.9 Type 2 diabetes mellitus without complications; Z88.1 Allergy status to other antibiotic agents; Z88.0 Allergy status to penicillin; Z88.8 Allergy status to other drugs, medicaments and biological substances; Z79.82 Long term (current) use of aspirin; Z79.899 Other long term (current) drug therapy; Z79.84 Long term (current) use of oral hypoglycemic drugs; Z87.891 Personal history of nicotine dependence; Z98.49 Cataract extraction status, unspecified eye; Z90.49 Acquired absence of other specified parts of digestive tract; Z90.710 Acquired absence of both cervix and uterus
CPT/HCPCS: 36415; 51701; 70450; 71045; 71046; 71275; 80048; 80053; 81001; 82947; 83605; 83880; 84484; 85025; 85379; 87040; 87086; 87088; 87186; 93005; 97161-GP; 99223; 99233; 99238; A9270-GY; J0696; J1610; J1650; J3480; J3490; J7030; J7120; Q9967